=== PATIENT | female | born 1995 | race Two or more races ===

== ENCOUNTER 2022-08-14 13:57 | Inpatient (IN) | payer MEDICAID ==
[~2022-08-14] VITALS: Ht 157.5 cm; Wt 83.5 kg
[2022-08-14 14:46] LABS: Basophils # (auto) 0.1 10 ^3/uL (0-0.2); Eosinophils # (auto) 0.1 10 ^3/uL (0-0.8); Hemoglobin 9.8 g/dL (12.2-16.2); Monocytes # (auto) 0.4 10 ^3/uL (0-1.3); Neutrophils # (auto) 2.5 10 ^3/uL (1.6-8.6)
[2022-08-14 14:48] LABS: Basophils % (auto) 1.9 % (0.0-2.0); Hematocrit 32.2 % (36.0-46.0); Lymphocytes # (auto) 1.2 10 ^3/uL (0.4-5.4); Lymphocytes % (auto) 28.2 % (10.0-50.0); Mean Corpuscular Hemoglobin 24.5 pg (28.0-32.0); Mean Corpuscular Hgb Conc. 30.5 g/dL (32.0-36.0); Mean Corpuscular Volume 80.2 fL (80.0-100.0); Monocytes % (auto) 9.2 % (0.0-12.0); Neutrophils % (auto) 57.7 % (37.0-80.0); Red Blood Cells 4.02 10^6/uL (4.0-5.20); Red Cell Distribution Width 16.3 % (11.8-14.3); White Blood Cell 4.3 10^3/uL (4.4-10.8)
[2022-08-14 15:13] LABS: Albumin 3.5 g/dL (3.4-5.0); BUN/Creatinine Ratio 10.5; Calcium 8.6 mg/dL (8.5-10.1); Potassium 4.3 mmol/L (3.5-5.1)
[2022-08-14 15:21] LABS: Bilirubin, Total 0.7 mg/dL (0.2-1.0); Total Protein 6.6 g/dL (6.4-8.2)
[2022-08-14 15:55] LABS: Urine Bacteria FEW /hpf (None Seen); Urine Blood Negative /uL (Negative); Urine Specific Gravity 1.018 (1.001-1.035); Urine WBC <1 /hpf (0 - 5)
[2022-08-14] MEDS ORDERED: IOHEXOL 300 MG/ML 100ML BOTTLE IJ ONE (17:34)
[2022-08-14] MEDS ORDERED: metroNIDAZOLE 500MG/100ML 100 ML IV ONE (17:45)
[2022-08-14] MEDS ORDERED: SODIUM CHLORIDE 0.9% 1,000 ML IV ONE ×2 (17:45)
[2022-08-14] MEDS: SODIUM CHLORIDE 0.9% 1,000 ML IV SCH (23:30)
[2022-08-14] MEDS ORDERED: IBUPROFEN 600 MG TAB PO PRN (23:30)
[2022-08-14] MEDS ORDERED: ONDANSETRON HCL 4 MG/2 ML VIAL IV PRN (23:30)
[2022-08-15] MEDS ORDERED: MORPHINE SULFATE INJ 2 MG/ml SYRG IV PRN
[2022-08-15] MEDS ORDERED: NITROGLYCERIN 0.4 MG SL TAB SL PRN
[2022-08-15] MEDS: HYDROcodone-ACET 5/325MG TAB PO PRN ×2 (04:23→22:37)
[2022-08-15] MEDS ORDERED: HYDR-4072 PO (05:29)
[2022-08-15 08:14] VITALS: BP 108/64
[2022-08-15 08:48] LABS: Basophils # (auto) 0 10 ^3/uL (0-0.2); Eosinophils # (auto) 0.1 10 ^3/uL (0-0.8); Mean Corpuscular Hemoglobin 24.9 pg (28.0-32.0); Monocytes # (auto) 0.3 10 ^3/uL (0-1.3); White Blood Cell 2.7 10^3/uL (4.4-10.8)
[2022-08-15 08:50] LABS: Basophils % (auto) 0.6 % (0.0-2.0); Eosinophils % (auto) 4.5 % (0.0-7.0); Hematocrit 28.4 % (36.0-46.0); Hemoglobin 8.9 g/dL (12.2-16.2); Lymphocytes # (auto) 0.8 10 ^3/uL (0.4-5.4); Lymphocytes % (auto) 29.5 % (10.0-50.0); Mean Corpuscular Hgb Conc. 31.3 g/dL (32.0-36.0); Mean Corpuscular Volume 79.4 fL (80.0-100.0); Monocytes % (auto) 12.6 % (0.0-12.0); Neutrophils # (auto) 1.4 10 ^3/uL (1.6-8.6); Neutrophils % (auto) 52.8 % (37.0-80.0); Red Blood Cells 3.58 10^6/uL (4.0-5.20); Red Cell Distribution Width 15.9 % (11.8-14.3)
[2022-08-15 09:00] LABS: Calcium 8.2 mg/dL (8.5-10.1); Potassium 4.1 mmol/L (3.5-5.1)
[2022-08-15 09:05] LABS: BUN/Creatinine Ratio 12.8; Bilirubin, Total 0.6 mg/dL (0.2-1.0); Total Protein 5.6 g/dL (6.4-8.2)
[2022-08-15] MEDS ORDERED: GASTROGRAFIN 120 ML SOL ONE (09:58)
[2022-08-15] MEDS: FAMOTIDINE (10MG/ML) 2ML VL IV SCH ×2 (12:31→22:32)
[2022-08-15 13:00] VITALS: BP 120/70
[2022-08-15] MEDS: MORPHINE SULFATE INJ 2 MG/ml SYRG IV PRN ×2 (13:08→18:11)
[2022-08-15] MEDS: SODIUM CHLORIDE 0.9% 1,000 ML IV SCH (16:10)
[2022-08-15 17:21] VITALS: BP 111/73
[2022-08-15 22:00] VITALS: BP 123/78
[2022-08-16] MEDS: SODIUM CHLORIDE 0.9% 1,000 ML IV SCH (03:04)
[2022-08-16] MEDS: HYDROcodone-ACET 5/325MG TAB PO PRN (03:56)
[2022-08-16 05:00] VITALS: BP 135/79
[2022-08-16 08:00] VITALS: BP 128/67
[2022-08-16] MEDS: FAMOTIDINE (10MG/ML) 2ML VL IV SCH (08:55)
[2022-08-16 09:00] VITALS: BP 128/67
[2022-08-16 13:00] VITALS: BP 119/75
[2022-08-16] MEDS ORDERED: OMEP20TA PO (15:26)
[2022-08-16 16:42] VITALS: BP 117/85
[2022-08-16 17:00] VITALS: BP 117/85
== END 2022-08-16 17:15 | disposition home or self-care (01) | DRG 247 ==
LOC: ER 13:57 → OVERFLOW 23:54 → EAST 08-15 03:55
PROVIDERS: ADMIT Nurse Practitioner Family; ATTEND Nurse Practitioner Family
DX: K56.600 Partial intestinal obstruction, unspecified as to cause (principal); Q43.3 Congenital malformations of intestinal fixation; F17.210 Nicotine dependence, cigarettes, uncomplicated; G89.29 Other chronic pain; K21.9 Gastro-esophageal reflux disease without esophagitis; K52.9 Noninfective gastroenteritis and colitis, unspecified; Z53.29 Procedure and treatment not carried out because of patient's decision for other reasons; Z20.822 Contact with and (suspected) exposure to COVID-19; Z90.49 Acquired absence of other specified parts of digestive tract
CPT/HCPCS: 36415; 74176; 74177; 74250; 80053; 81001; 84702; 85025; 86850; 86900; 86901; 87426; 96361; 96365; G0378; J3490